=== PATIENT | female | born 1950 | race Caucasian/White ===

== ENCOUNTER 2018-10-22 02:08 | Emergency (ER) | payer OTHER, BC ==
[~2018-10-22] VITALS: Ht 160 cm; Wt 77.1 kg
[2018-10-22 02:18] VITALS: Ht 160 cm; Wt 77.1 kg
[2018-10-22 04:02] VITALS: BP 109/63
== END 2018-10-22 04:02 | disposition home or self-care (01) ==
LOC: ED 02:08
DX: T78.40XA Allergy, unspecified, initial encounter (principal); I10 Essential (primary) hypertension; Z88.8 Allergy status to other drugs, medicaments and biological substances; Y92.89 Other specified places as the place of occurrence of the external cause
CPT/HCPCS: J2930; J3490; Q0163

== ENCOUNTER 2019-12-24 12:45 | Inpatient (IN) | payer OTHER, BC ==
[~2019-12-24] VITALS: Ht 157.5 cm; Wt 72.6 kg
[2019-12-24 13:06] VITALS: Ht 157.5 cm; Wt 72.6 kg
--- NOTE | 2019-12-24 13:09 | NUR ---
EKG IN PROGRESS.
--- NOTE | 2019-12-24 13:15 | NUR ---
PT BIB SELF C/C CP X [address] ZHAO AT BEDSIDE TO BUD
[2019-12-24 14:08] LABS: BASOPHIL % 0.7 % (0-2); PLATELET COUNT 168 x10^3mcL (130-400); RED CELL DISTRIBUTION WIDTH 13.5 % (11.5-14.5)
--- NOTE | 2019-12-24 14:18 | NUR ---
BACK FROM CT
[2019-12-24 15:16] LABS: ALBUMIN 3.5 g/dL (3.4-5.0); BILIRUBIN TOTAL 0.4 mg/dL (0.20-1.00); CALCIUM 9.5 mg/dL (8.5-10.1); CARBON DIOXIDE 29.8 mmol/L (21-32); CHLORIDE SERUM 100 mmol/L (98-107); GLUCOSE SERUM 112 mg/dL (74-106); POTASSIUM SERUM 3.4 mmol/L (3.5-5.1); SODIUM SERUM 140 mmol/L (136-145); TOTAL PROTEIN, SERUM 7.7 g/dL (6.4-8.2)
[2019-12-24 15:17] LABS: ALKALINE PHOSPHATASE 79 U/L (46-116); ALT/SGPT 26 U/L (14-59); AST/SGOT 21 U/L (15-37)
[2019-12-24 15:25] LABS: AMPHETAMINE QUAL UR NONE DETECTED (See below)
--- NOTE | 2019-12-24 15:58 | NUR ---
ASA GIVEN ORDERED
--- NOTE | 2019-12-24 16:02 | NUR ---
PLEASE ENTER FULL NAMES OF OIL SEAL ASSEMBLER/RN Patient data collected by (OIL SEAL ASSEMBLER):katy gandhi Assessment reviewed and completed by (RN): jordan hagen
--- NOTE | 2019-12-24 17:08 | NUR ---
PT ADMIT TO TELE ROOM 251B GAVE REPORT TO KARLA
[2019-12-24] MEDS ORDERED: NOR5 PO (17:57)
[2019-12-24] MEDS ORDERED: COZAAR50 M1 PO (17:58)
[2019-12-24] MEDS ORDERED: MICROZIDE12.5 MG PO (17:59)
[2019-12-24 18:01] VITALS: BP 129/57
[2019-12-24] MEDS ORDERED: LOP100 PO (18:01)
[2019-12-24] MEDS ORDERED: PREMARIN V0.625 MG/G VG (18:02)
[2019-12-24] MEDS ORDERED: MINIVELLE0.05 MG/24 (18:04)
[2019-12-24] MEDS ORDERED: MED4 PO (18:05)
[2019-12-24] MEDS ORDERED: NAPROSYN500 MG PO (18:05)
[2019-12-24] MEDS ORDERED: ALLOPURINOL300 M1 PO (18:08)
[2019-12-24] MEDS ORDERED: NASAL MIST126 ML ×2 (18:08→18:14)
--- NOTE | 2019-12-24 18:10 | NUR ---
RECEIVED PT FROM ER, PT ADMIT FOR CHEST PAIN. PT IS A/O X4, VERBAL RESPONSIVE. LUNG SOUND CLEAR BILATERAL, NO COUGH, NO SOB. PT IS ON TELE 15, NSR, C/O CHEST PAIN AT RIGHT CHEST AND RADIATE TO RIGTH ARM, BOWEL SOUND PRESENT ALL 4 QUADRANTS, NO DISTENTION, NO TENDER. PEDAL PULSE PRESENT BOTH FEET, NO EDEMA, IV AT RIGHT AC, NO LEAKING, NO INFILTRATION. ALL ADLS ASSIST, ALL NEED MET, CALL LIGHT IN REACH, WILL CONTINUE TO MONITOR.
[2019-12-24] MEDS ORDERED: ESTRACE0.5 MG PO (18:14)
[2019-12-24] MEDS ORDERED: BENICAR40 M1 PO (18:57)
--- NOTE | 2019-12-24 19:40 | NUR ---
RECIEVED REPORT FROM RESOURCE NURSE STEPHANIE. PATIENT ASSESSMENT PERFORMED. NO COMPLAINTS OF CHEST PAIN AT THIS TIME. PATIENT REQUESTING BLANKET FOR WARMTH. NS INFUSING TO LAC. BED IN THE LOW POSITION. SAFETY PRECAUTIONS IN PLACE. WILL ENDORSE CARE TO NOC NURSE.
[2019-12-24] MEDS ORDERED: TOPROL XL100 MG PO (19:52)
--- NOTE | 2019-12-24 20:05 | NUR ---
PT A/A/O X4, SPOUSE AT BEDSIDE. PT DENIES DIZZINESS AND HEADACHE. BREATH SOUNDS CLEAR. BREATHING EVEN AND UNLABORED ON ROOM AIR. C/O 4/10 CHEST PAIN RADIATING TO THE RIGHT ARM. PT C/O RIGHT ARM PAIN WORSE THAN CHEST PAIN. DENIES PAIN MEDICATION THUS FAR. BOWEL SOUNDS ACTIVE. NO C/O N/V AND ABD PAIN. IV INTACT ON THE RAC INFUSING ORDERED. MADE PT COMFORTABLE. PLACED CALL LIGHT WITH IN REACH. WILL CONTINUE TO MONITOR.
[2019-12-24 20:18] VITALS: BP 133/68
--- NOTE | 2019-12-24 23:13 | NUR ---
PT C/O MILD PAIN ON THE RIGHT ARM. GAVE PT TYLENOL PO. PT TOLERATED IT WELL. WILL CONTINUE TO MONITOR.
--- NOTE | 2019-12-25 03:11 | NUR ---
PT C/O RIGHT SHOULDER PAIN RADIATING TO THE ARM AND CHEST AND BACK. GAVE PT TORADOL IVP. PT TOLERATED IT WELL. WILL CONTINUE TO MONITOR.
--- NOTE | 2019-12-25 06:04 | NUR ---
PT DENIES PAIN CHEST PAIN AND RIGHT SHOULDER PAIN THUS FAR. IV INTACT AND INFUSING ORDERED. MADE PT COMFORTABLE. WILL ENDORSE TO THE AM NURSE ACCORDINGLY.
--- NOTE | 2019-12-25 07:34 | NUR ---
RECEIVED PT LYING IN BED A/A. BREATHING EQUAL/UNLABORED ON RA. NO ACUTE PAIN/ DISTRESS. IVF RUNNING AT 100ML/HR, SITE WNL. BED IN LOW POSITION, CALL LIGHT IN REACH, SAFETY PRECAUTIONS IN PLACE, WILL CONTINUE TO MONITOR
[2019-12-25 07:53] LABS: CHLORIDE SERUM 104 mmol/L (98-107); GLUCOSE SERUM 94 mg/dL (74-106); POTASSIUM SERUM 3.3 mmol/L (3.5-5.1); SODIUM SERUM 141 mmol/L (136-145)
[2019-12-25 07:54] LABS: CALCIUM 8.3 mg/dL (8.5-10.1); MAGNESIUM 1.7 mg/dL (1.8-2.4); PHOSPHOROUS 3.1 mg/dL (2.5-4.9)
[2019-12-25 07:58] LABS: BASOPHIL % 0.5 % (0-2); PLATELET COUNT 155 x10^3mcL (130-400); RED CELL DISTRIBUTION WIDTH 13.2 % (11.5-14.5)
[2019-12-25 08:40] VITALS: BP 99/37
[2019-12-25 08:41] VITALS: BP 124/67
[2019-12-25 12:05] VITALS: BP 124/73
[2019-12-25] MEDS ORDERED: NOVAPLUS LIDOCAINE5% TOP (13:34)
--- NOTE | 2019-12-25 14:20 | NUR ---
PT BEING DISCHARGED HOME. PT IS A/A, BREATHING EQUAL/UNLABORED ON RA, NO ACUTE DISTRESS. DISCHARGE INSTRUCTIONS/ EDUCATION, F/U APPT., AND NEW RX DISCUSSED WITH PT AND HER , THEY BOTH VERBALIZED UNDERSTANDING. ALL QUESTIONS AND CONCERNS ADDRESSED. IV REMOVED WITH CATHETER INTACT, SITE WNL.
--- NOTE | 2019-12-25 14:33 | NUR ---
PT DISCHARGED HOME. PT AMBULATED DOWN TO LOBBY, ACCOMPANIED BY HER AND AIRCRAFT TECHNICIAN. ALL BELONGINGS WITH PT
[2019-12-25] MEDS ORDERED: NORCO1 TA2 PO (14:48)
== END 2019-12-25 14:35 | disposition home or self-care (01) | DRG 74 ==
LOC: ED 12:45 → DU 16:35 → MU 16:35 → DU 17:44 → MU 12-25 14:02
PROVIDERS: Emergency Medicine; ADMIT Student in an Organized Health Care Education/Training Program
DX: M54.12 Radiculopathy, cervical region (principal); M94.0 Chondrocostal junction syndrome [Tietze]; I10 Essential (primary) hypertension; M10.9 Gout, unspecified; E73.9 Lactose intolerance, unspecified; R15.9 Full incontinence of feces; R32 Unspecified urinary incontinence; Z68.30 Body mass index [BMI] 30.0-30.9, adult
CPT/HCPCS: 83880; G0378; J1885; J7030